=== PATIENT | female | born 1995 ===

== ENCOUNTER 2019-10-19 04:07 | Inpatient (IN) | payer OTHER ==
[2019-10-19] MEDS ORDERED: PROMETHAZINE INJ 25 MG/ML AMP IM PRN (05:27)
[2019-10-19] MEDS ORDERED: CARBOPROST TROME 250 MCG/ML IM PRN (05:27)
[2019-10-19] MEDS ORDERED: Ringers Lactate 1,000 ML IV PRN (05:27)
[2019-10-19] MEDS ORDERED: METHYLERGONOVINE 0.2MG/ML AMP IM PRN (05:27)
[2019-10-19] MEDS ORDERED: BUTORPHANOL 1 MG/ML INJ IV PRN (05:27)
[2019-10-19 05:55] LABS: Urine Appearance CLEAR; Urine Bilirubin NEGATIVE (NEG); Urine Blood TRACE (NEG); Urine Color YELLOW; Urine Glucose NEGATIVE (NEG); Urine Protein NEGATIVE (NEG)
[2019-10-19 05:57] LABS: Urine Microscopic Reflex ORDER UMIC
[2019-10-19] MEDS ORDERED: OXYTOCIN/LR 20 UNIT/1,000 ML BAG IV SCH ×2 (06:00→11:00)
[2019-10-19] MEDS ORDERED: Ringers Lactate 1,000 ML IV SCH (06:00)
[2019-10-19 06:03] LABS: Urine Bacteria 20-50 /HPF (<20); Urine Culture Reflex Order REFLEXED; Urine RBC <5 /HPF (NONE SEEN); Urine Yeast FEW (NONE SEEN)
[2019-10-19 06:06] LABS: Absolute Lymphocytes (CBC) 1.9 K/uL (0.7-4.9); Basophils % 0.3 % (0-1.3); Hematocrit 26.5 % (36.0-45.0); Lymphocytes % 18.2 % (15.3-44.8); MPV 7.6 fL (7.6-11.3)
[2019-10-19 07:09] VITALS: BMI 33.0
[2019-10-19] MEDS ORDERED: LIDOCAINE 1% MPF 30 ML VIAL ONE (08:58)
[2019-10-19] MEDS ORDERED: FENTANYL CITR 100 MCG/2 ML IV ONE (09:16)
[2019-10-19] MEDS ORDERED: ROPIVACAINE HCL 100 ML IV PRN (09:16)
[2019-10-19] MEDS ORDERED: ROPIVACAINE HCL 0.2% 20ML AMP IV ONE (10:00)
--- NOTE | 2019-10-19 10:46 | PN ---
The patient has her epidural, now is quite comfortable. Maintenance set at 8. The patient is on 12 milliunits of Pitocin, paulette regularly. Rupture of membranes, clear fluid. She is 5 cm, but t he anterior lip of the cervix especially around 11 o'clock is slightly swollen. Hopefully, we will s ee more progress now with rupture of membranes. EDGAR/WILMAR Voice ID: [id number] Report ID: [id number]
[2019-10-19] MEDS ORDERED: DOCUSATE NA/SENNA CONC 1 TAB PO PRN (11:00)
[2019-10-19] MEDS ORDERED: BISACODYL 10 MG RECTAL SUPP PR PRN (11:00)
[2019-10-19] MEDS ORDERED: DIPHENHYDRAMINE 25 MG TAB/CAP PO PRN (11:00)
[2019-10-19] MEDS ORDERED: ACETAMINOPHEN 500 MG TAB PO PRN (11:00)
[2019-10-19] MEDS ORDERED: Oxycodone HCl/Acetaminophen 1 TAB TAB PO PRN (11:00)
[2019-10-19] MEDS: IBUPROFEN 600 MG TAB PO PRN (14:15)
[2019-10-19] MEDS: METHYLERGONOVINE 0.2 MG TAB PO SCH ×3 (15:00→23:09)
[2019-10-19] MEDS: Oxycodone HCl/Acetaminophen 1 TAB TAB PO PRN ×2 (15:35→19:29)
--- NOTE | 2019-10-19 19:55 | OP ---
Surgeon: Navi Clemente MD A 24-year-old 5, para 4, 37 weeks 1 day, followed antepartum without apparent complications by [facility], dropped into our institution, noted to be in active labor, 4.5 to 5 cm on admission, paulette regularly. During the labor, initially received Stadol 1 mg IV, Phenergan 25 mg IM. At her request, received epidural anesthesia at approximately 5 cm, went rapidly to complete second stage of about 10 minutes or less, spontaneous vaginal delivery of an estimated 6 pounds plus female, Apgars 9 and 9. No episiotomy. No lacerations. Mild uterine hypertonus, 0.2 mg of Methergine and IV drip Pitocin as well as massage. Estimated blood loss 350, possibly 400 cc. Beta strep status was unknown. Therefore, the patient received at least 1 possibly 2 doses of penicillin. She is Rh positive, nonimmune to rubella, will begin given immunization or at least offered it before she is dismissed. The patient states that she was COVID negative and was checked again here, result pending at this point. Final Diagnoses: Intrauterine gestation 37 weeks 1 day, spontaneous labor, vaginal delivery, epidural anesthesia. Mild uterine hypotonus. Penicillin prophylaxis. EDGAR/WILMAR Voice ID: [id number] Report ID: [id number] FARAZ
[2019-10-20] MEDS: IBUPROFEN 600 MG TAB PO PRN (00:35)
[2019-10-20] MEDS: Oxycodone HCl/Acetaminophen 1 TAB TAB PO PRN ×2 (00:35→06:40)
[2019-10-20] MEDS: METHYLERGONOVINE 0.2 MG TAB PO SCH (03:30)
--- NOTE | 2019-10-20 08:34 | DS ---
A 24-year-old 5, para 4, seen antepartum at [facility] with no apparent complications, 37 weeks 1 d ay, came in in active rapidly advancing labor, delivered a 6 pounds 8 ounces female. Apgars 9 and 9. No episiotomy. No lacerations. Schultze delivery of the placenta. Mild uterine hypotonus, 0.2 mg of Methergine IM. Estimated blood loss 350, possibly 400 cc. Penicillin prophylaxis as the patient was not aware of her beta strep status. ; afebrile, ambulating, and voiding. Lochia is n ormal. No post epidural problems. Rubella immunization offered as the patient is nonimmune, Tdap as well. Final Diagnoses: Intrauterine gestation, 37 weeks 1 day, vaginal delivery, epidural anesthesia. Tda p and rubella immunizations offered. Mild uterine hypotonus. Penicillin prophylaxis. EDGAR/WILMAR Voice ID: [id number] Report ID: [id number]
[2019-10-20 12:57] VITALS: BP 127/75; TEMP 98.8
[2019-10-21 01:09] LABS: RPR (Rapid Plasma Reagin) NON-REACT (NON-REACT)
== END 2019-10-20 13:30 | disposition home or self-care (01) | DRG 807 ==
LOC: L&D 04:07 → 2ND-WC 04:48 → EDSEX 04:48
PROVIDERS: ADMIT Specialist; ATTEND Specialist
PROC: 10E0XZZ Delivery of Products of Conception, External Approach (ICD-10-PCS; principal; 2019-10-19)
PROC: 10907ZC Drainage of Amniotic Fluid, Therapeutic from Products of Conception, Via Natural or Artificial Opening (ICD-10-PCS; 2019-10-19)
DX: O99.824 Streptococcus B carrier state complicating childbirth (principal); Z37.0 Single live birth; O62.2 Other uterine inertia; Z3A.37 37 weeks gestation of pregnancy
CPT/HCPCS: 36415; 81003; 81015; 85025; 86592; 86850; 86900; 86901; 87086; 87088; 87340; J0595; J2210; J2550; J2590; J2795; J3010; J7120